=== PATIENT | female | born 1950 | race Caucasian/White ===

== ENCOUNTER 2022-02-09 09:25 | Outpatient (RCR) | payer MEDICARE, BC, SELFPAY | END 2022-04-13 14:14 | disposition home or self-care (01) | LOC: HO.WCC 09:25 | PROVIDERS: Visit Provider Physician Assistant | DX: I83.018 Varicose veins of right lower extremity with ulcer other part of lower leg (principal); L97.812 Non-pressure chronic ulcer of other part of right lower leg with fat layer exposed; M32.9 Systemic lupus erythematosus, unspecified; I73.00 Raynaud's syndrome without gangrene; M35.00 Sjogren syndrome, unspecified; I27.20 Pulmonary hypertension, unspecified; M34.83 Systemic sclerosis with polyneuropathy | CPT/HCPCS: 11042; 99212 ==

== ENCOUNTER 2022-02-23 20:15 | Inpatient (IN) | payer MEDICARE, SELFPAY ==
--- NOTE | ~2022-02-23 | CT_ITS ---
EXAMINATION: CT ANGIOGRAM OF THE CHEST WITH AND WITHOUT CONTRAST (CT PULMONARY ANGIOGRAM FOR PE) CLINICAL INFORMATION: Reason for Exam dyspnea, CTA PER DR ORTIZ COMPARISON: 02/24/2017 TECHNIQUE: Prior to contrast administration, noncontrast localization images were obtained. Subsequently, multidetector volumetric imaging was performed from the thoracic inlet to below the diaphragms following the administration of 65 mL Omnipaque 350 intravenous contrast. No contrast reaction reported Sagittal, coronal, and MIP oblique sagittal reformatted images were obtained on the CT workstation, uploaded to PACS, and reviewed. This CT examination was performed using dose optimization techniques as appropriate, variously including the following: *Automated exposure control *Adjustment of mA and/or kV according to patient size (this includes techniques or standardized protocols for targeted exams where dose is matched to indication/reason for exam; i.e. extremities or head) *Use of iterative reconstruction technique Total exam dose-length product 184 mGy-cm FINDINGS: QUALITY OF STUDY/CONTRAST BOLUS: Satisfactory. PULMONARY ARTERIES: No central or segmental pulmonary emboli. Limited evaluation of the distal vasculature due to respiratory motion artifact. THORACIC AORTA: No aneurysm or dissection. LUNG: Detailed evaluation is limited due to respiratory motion artifact. There is upper lobe predominant emphysema. There is groundglass attenuation within much of the lung parenchyma which could indicate mild edema. A few patchy areas of consolidation are present in the inferior right middle lobe. There is dependent atelectasis in the lower lobes, right greater than left. PLEURA: Small pleural effusions. No pneumothorax. MEDIASTINUM: Thyroid gland is not well seen. No appreciable mediastinal lymphadenopathy. There is cardiomegaly without pericardial effusion. Intraventricular septum appears flattened. Coronary artery calcifications are present. CHEST WALL/AXILLA: No axillary or internal mammary lymphadenopathy. OSSEOUS STRUCTURES: Partially visualized bilateral shoulder arthroplasty hardware. Multiple healed left rib fractures are noted along with healed sternal fracture. Redemonstrated vertebral body cement at T10-T12. Chronic appearing compression deformities at T2, T3, T4, T7, and T9. UPPER ABDOMEN: Scattered bilateral renal calculi are present. Reflux of contrast into the IVC is noted. CT/CT angio chest PE protocol IMPRESSION: 1. No pulmonary embolus identified. 2. Groundglass attenuation within much of the lung parenchyma, which can be seen with edema versus multifocal infection. 3. Small pleural effusions. 4. Cardiomegaly with findings suggesting elevated right heart pressures. 5. Coronary artery calcifications. Correlation with cardiac risk factors is recommended. VTE: negative
--- NOTE | ~2022-02-23 | XR_ITS ---
EXAMINATION: XR CHEST CLINICAL INFORMATION: Shortness of breath COMPARISON: 02/23/2017 TECHNIQUE: Frontal view of the chest was obtained. FINDINGS: Ill-defined opacities throughout the right lung somewhat sparing the right base. More mild change involving the left lung these markings could be chronic The cardiac silhouette is comparable. XR/XR chest 1V IMPRESSION: Exam is most remarkable for coarse interstitial opacity in the right lung most consistent with infiltrate. Differential would include asymmetric pulmonary edema but correlation needs to be made clinically. More mild change on the left. Attention to follow-up
--- NOTE | 2022-02-23 20:19 | ED.SOB ---
HPI - SOB/Dyspnea General Chief Complaint: Dyspnea Stated Complaint: dif breathing Time Seen by Provider: 02/23/22 20:17 History of Present Illness HPI Narrative: Patient is a 71-year-old female with a history of pulmonary hypertension. Presented today with having sudden onset of shortness of breath. Weakness. Patient from home. No change in environment. History of pulmonary hypertension. Currently getting care in [place]. Related Data Allergies Allergy/AdvReac Type Severity Reaction Status Date / Time Sulfa (Sulfonamide Allergy Unknown unknown Verified 02/23/22 21:13 Antibiotics) [SULFA (SULFONAMIDE ANTIBIOTICS)] Review of Systems Review of Systems: Unable to obtain review systems secondary to patient's current respiratory status Yes Unobtainable due to mental condition [facility] Past Medical History Attestation statement: The following information was validated with the patient. Social History Social History Advance Directives: No Advance Directives Information Provided: No Physical Exam Vital Signs: Vital Signs: Last Vital Signs Pulse 71 02/23/22 20:33 Resp 24 H 02/23/22 20:35 BP 135/88 02/23/22 20:33 Pulse Ox 100 02/23/22 20:33 O2 Del Method 02/23/22 20:33 Oxygen Flow Rate 15 02/23/22 20:33 BMI result Body Mass Index 18.9 Sick appearing short of breath Appearance: Alert. In respiratory distress Eyes: Pupils equal, round and reactive to light. ENT: Pharynx normal. Neck: Increased work of breathing diminished breath sounds bilaterally crackles bilaterally. CVS: Normal heart rate and rhythm. Pulses normal. Normal S1 and S2 Respiratory: No respiratory distress. Breath sounds normal. No Wheezing. No rales Abdomen: Soft and nontender. No rigidity. No distention. good BS x4 Skin: Skin warm and dry. Normal skin color. Normal skin turgor. Extremities: No lower extremity edema. Neurovascular intact to all extremities. No Lacerations. No Rash Neuro: Oriented X 3. No motor deficit. No sensory deficit. Moving all extermities. No slurred speech MDM - SOB/Dyspnea MDM Narrative Medical decision making narrative: EKG showed a sinus pattern heart rate is 100 GA QRS QT within normal limits is no acute ST segment elevation noted. 21:00. Patient's chest x-ray showed bilateral infiltrate but more prominent on the right. Question pneumonia versus CHF. With a Bnp of 1471 more likely this is secondary to congestive heart failure. Patient already started on BiPAP. . Lasix nitro given. Will monitor very closely. Culture were obtained. Antibiotic was started. Overall felt patient's symptom more likely secondary to congestive heart failure. Did not feel patient has sepsis. Will monitor very carefully. Aware patient's lactic acid was slightly elevated at 2.3. This is most likely secondary to stress decreased perfusion, respiratory distress 22:00 patient has been on the BiPAP about 2 hours at this point. Symptomatic Rowan feels much improved. An ABG was done. It showed no CO2 retention. PaO2 was in the 180s range at 80% oxygen. Will turn down the O2 to 50%. Patient to be admitted. Again does not think patient has sepsis. Feels patient's symptoms more likely related to congestive heart failure. Differential Diagnosis Differential diagnosis: Likely acute exacerbation of chronic obstructive airways disease, congestive heart failure, pneumonia and asthma with exacerbation Medical Records Attestation: I reviewed the patient's medical records. Lab Data Attestation: I reviewed the patient's lab results. Result diagrams: 02/23/22 20:29 02/23/22 21:30 Labs: Lab Results 02/23/22 02/23/22 02/23/22 Range/Units 20:29 20:29 20:29 WBC 15.5 H (4.8-10.8) X10*3/uL RBC 4.64 (4.20-5.50) X10*6/uL Hgb 13.4 (12.0-16.0) g/dl Hct 43.9 (37.0-47.0) % MCV 94.6 (80.0-98.0) fL MCH 28.9 (27.0-33.0) pg MCHC 30.5 L (31.0-35.0) g/dl RDW 15.9 (11.0-16.0) % Plt Count 297 (160-400) X10*3/uL MPV 10.2 (9.4-12.3) fL Immature Gran % (Auto) 0.5 H (0.0-0.4) % Neut % (Auto) 84.5 H (45-73) % Lymph % (Auto) 8.5 L (20-40) % Deuel % (Auto) 4.7 (2-11) % Eos % (Auto) 1.3 (0-4) % Baso % (Auto) 0.5 (0-2) % Lymph # (Auto) 1.3 (1.2-4.9) X10*3/uL Deuel # (Auto) 0.7 (0.1-1.2) X10*3/uL Eos # (Auto) 0.2 (0.0-0.4) X10*3/uL Baso # (Auto) 0.1 (0.0-0.2) X10*3/uL Abs Immat Gran (auto) 0.08 H (0.00-0.03) X10*3/uL Absolute Neuts (auto) 13.1 H (2.0-8.3) x10*3/uL Absolute Nucleated RBC 0.000 (0.0-0.012) X10*3/uL Nucleated RBC % (auto) 0.0 (0.0-0.2) /100WBC O2 Saturation % ABG pH at Pt Temp (7.35-7.45) ABG pCO2 at Pt Temp (32-45) mmHg ABG pO2 at Pt Temp (83-108) mmHg ABG HCO3 (22-26) mmol/L ABG Base Excess (Actual) mmol/L Sodium (135-145) mmol/L Potassium (3.3-5.1) mmol/L Chloride (96-108) mmol/L Carbon Dioxide (22-29) mmol/L Anion Gap (12-20) BUN (9-16) mg/dL Creatinine (0.5-1.4) mg/dL Estim Creat Clear Calc Estimated GFR Random Glucose (60-115) mg/dL Lactic Acid 2.3 H* (0.5-2.0) mmol/L Calcium (8.4-10.2) mg/dL Total Bilirubin (0.0-1.0) mg/dL Direct Bilirubin (0.0-0.5) mg/dL AST (5-31) U/L ALT (0-31) U/L Alkaline Phosphatase (39-117) U/L Troponin I High Sens 18.7 H (<3.5-17.0) ng/L B-Natriuretic Peptide 1471 H (<100) pg/mL Total Protein (6.5-8.0) g/dL Albumin (3.5-5.0) g/dL 02/23/22 02/23/22 Range/Units 21:30 21:53 WBC (4.8-10.8) X10*3/uL RBC (4.20-5.50) X10*6/uL Hgb (12.0-16.0) g/dl Hct (37.0-47.0) % MCV (80.0-98.0) fL MCH (27.0-33.0) pg MCHC (31.0-35.0) g/dl RDW (11.0-16.0) % Plt Count (160-400) X10*3/uL MPV (9.4-12.3) fL Immature Gran % (Auto) (0.0-0.4) % Neut % (Auto) (45-73) % Lymph % (Auto) (20-40) % Deuel % (Auto) (2-11) % Eos % (Auto) (0-4) % Baso % (Auto) (0-2) % Lymph # (Auto) (1.2-4.9) X10*3/uL Deuel # (Auto) (0.1-1.2) X10*3/uL Eos # (Auto) (0.0-0.4) X10*3/uL Baso # (Auto) (0.0-0.2) X10*3/uL Abs Immat Gran (auto) (0.00-0.03) X10*3/uL Absolute Neuts (auto) (2.0-8.3) x10*3/uL Absolute Nucleated RBC (0.0-0.012) X10*3/uL Nucleated RBC % (auto) (0.0-0.2) /100WBC O2 Saturation 99.0 % ABG pH at Pt Temp 7.34 L (7.35-7.45) ABG pCO2 at Pt Temp 39 (32-45) mmHg ABG pO2 at Pt Temp 191 H (83-108) mmHg ABG HCO3 21 L (22-26) mmol/L ABG Base Excess (Actual) -3.5 mmol/L Sodium 140 (135-145) mmol/L Potassium 5.9 H (3.3-5.1) mmol/L Chloride 104 (96-108) mmol/L Carbon Dioxide 24 (22-29) mmol/L Anion Gap 18 (12-20) BUN 29 H (9-16) mg/dL Creatinine 1.10 (0.5-1.4) mg/dL Estim Creat Clear Calc 32.4 Estimated GFR 49 Random Glucose 118 H (60-115) mg/dL Lactic Acid (0.5-2.0) mmol/L Calcium 9.6 (8.4-10.2) mg/dL Total Bilirubin 0.2 (0.0-1.0) mg/dL Direct Bilirubin < 0.2 (0.0-0.5) mg/dL AST 52 H (5-31) U/L ALT 27 (0-31) U/L Alkaline Phosphatase 115 (39-117) U/L Troponin I High Sens (<3.5-17.0) ng/L B-Natriuretic Peptide (<100) pg/mL Total Protein 7.5 (6.5-8.0) g/dL Albumin 4.4 (3.5-5.0) g/dL Critical Care Time Critical Care Time Critical Care Time: Yes Total Critical Care Time: 40 Attestation: I have personally provided 40 minutes of critical care time exclusive of time spent on separately billable procedures. Time includes review of lab data, radiology results, discussion with consultants, and monitoring for potential decompensation. Interventions were performed as documented above Discharge Plan Discharge Clinical Impression: Congestive heart failure Patient Disposition: Admitted As Inpatient
--- NOTE | 2022-02-23 20:27 | ECG_ITS ---
Test Reason : SOB Blood Pressure : / mmHG Vent. Rate : 075 BPM Atrial Rate : 075 BPM P-R Int : 162 ms QRS Dur : 078 ms QT Int : 402 ms P-R-T Axes : 026 085 036 degrees QTc Int : 448 ms Sinus rhythm with occasional Premature ventricular complexes Right atrial enlargement Abnormal ECG Significant changes have occurred Referred By: Vy Zarate Electronically Signed By:PIPO GRAY MD
[2022-02-23 20:33] VITALS: BP 135/88; BP 211/109; PULSE 71; PULSE 80; RESP 15; O2SAT 100; O2SAT 65; BMI 18.9
[2022-02-23 20:35] VITALS: PULSE 69; RESP 24; O2SAT 96
[2022-02-23 20:39] LABS: MANUAL DIFF FLAG NO
[2022-02-23 20:46] LABS: Basophils Absolute Auto 0.1 X10*3/uL (0.0-0.2); Basophils Percent Auto 0.5 % (0-2); Eosinophils Absolute Auto 0.2 X10*3/uL (0.0-0.4); Eosinophils Percent Auto 1.3 % (0-4); Hematocrit 43.9 % (37.0-47.0); Hemoglobin 13.4 g/dl (12.0-16.0); Imm Gran Abs Auto 0.08 X10*3/uL (0.00-0.03); Imm Gran Pct Auto 0.5 % (0.0-0.4); Lymphocytes Absolute Auto 1.3 X10*3/uL (1.2-4.9); Lymphocytes Percent Auto 8.5 % (20-40); Mean Corpuscular HGB Conc 30.5 g/dl (31.0-35.0); Mean Corpuscular Hemoglobin 28.9 pg (27.0-33.0); Mean Corpuscular Volume 94.6 fL (80.0-98.0); Mean Platelet Volume 10.2 fL (9.4-12.3); Monocytes Absolute Auto 0.7 X10*3/uL (0.1-1.2); Monocytes Percent Auto 4.7 % (2-11); Neutrophils Absolute Auto 13.1 x10*3/uL (2.0-8.3); Neutrophils Percent Auto 84.5 % (45-73); Platelet Count 297 X10*3/uL (160-400); Red Blood Count 4.64 X10*6/uL (4.20-5.50); Red Cell Distribution Width 15.9 % (11.0-16.0); White Blood Count 15.5 X10*3/uL (4.8-10.8)
[2022-02-23] MEDS: Nitroglycerin 2 % Oint 1 GM Packet 0.5 INCH TRANSDERMA (20:46)
[2022-02-23] MEDS: cefTRIAXone sodium 1 GM in 0.9 % Sodium Chloride 50 ML IV (20:47)
[2022-02-23] MEDS: Furosemide 40 MG/4 ML VIAL IVPUSH (20:47)
[2022-02-23] MEDS: methylPREDNISolone Sod Succ 125 MG/2 ML VIAL IVPUSH (20:47)
[2022-02-23 21:05] LABS: B Type Natriuretic Peptide 1471 pg/mL (<100); Troponin-I High Sensitivity 18.7 ng/L (<3.5-17.0)
[2022-02-23 21:11] LABS: Lactic Acid 2.3 mmol/L (0.5-2.0)
[2022-02-23 21:59] LABS: ABG Base Excess -3.5 mmol/L; ABG HCO3 21 mmol/L (22-26); ABG pCO2 39 mmHg (32-45); ABG pH 7.34 (7.35-7.45); ABG pO2 191 mmHg (83-108)
[2022-02-23] MEDS: Azithromycin 500 MG TABLET PO (22:03)
[2022-02-23 22:06] LABS: Alanine Aminotransferase 27 U/L (0-31); Albumin Level 4.4 g/dL (3.5-5.0); Alkaline Phosphatase 115 U/L (39-117); Anion Gap 18 (12-20); Aspartate Amino Transferase 52 U/L (5-31); Bilirubin Direct < 0.2 mg/dL (0.0-0.5); Bilirubin Total 0.2 mg/dL (0.0-1.0); Blood Urea Nitrogen 29 mg/dL (9-16); Calcium 9.6 mg/dL (8.4-10.2); Carbon Dioxide 24 mmol/L (22-29); Chloride 104 mmol/L (96-108); Creatinine Clr Calc Pharmacy 32.4; Estimated Glomerular Filt Rate 49; Glucose Random 118 mg/dL (60-115); Potassium 5.9 mmol/L (3.3-5.1); Sodium 140 mmol/L (135-145); Total Protein 7.5 g/dL (6.5-8.0)
--- NOTE | 2022-02-23 22:07 | PC.NURSE ---
Pt. resting in bed with BIPAP. Respiratory here to check on pt. and lower O2 levels. Pt. medicated with PO med per JUL w/o difficulties.
[2022-02-23 22:12] VITALS: O2SAT 95
[2022-02-23 22:15] VITALS: PULSE 72; RESP 18; O2SAT 95
[2022-02-23 22:36] LABS: Reflex Lactate? Lactic Acid Added
--- NOTE | 2022-02-23 22:45 | PC.NURSE ---
Patient removed from BIPAP, for trial prior to traveling to [place]. Patient sitting upright, awake alert, talking and laughing with family. Unable to obtain sat via multiple locations, MD aware and based on patient presentation and ABG results there are no new orders and at this time we do not need to continue to search for readable sat location. Per patient she has ac, she states it is typical for a sat to be unobtainable at all her prior MD appointments or visits.
[2022-02-23 23:03] LABS: ABG Refer to POC result
[2022-02-23 23:51] LABS: Glucose, Whole Blood 162 mg/dL (60-115)
[2022-02-24] VITALS: BP 124/75; PULSE 77; RESP 14
[2022-02-24] MEDS: iohexoL 350 MG/ML 100 ML INFUS..BTL 65 ML IV (00:08)
[2022-02-24 00:37] LABS: ~Lactic Acid-LAB USE ONLY 1.6 mmol/L (0.5-2.0)
--- NOTE | 2022-02-24 00:54 | P.HPHOSP_ITS ---
History of Present Illness Date of Service: 02/24/22 Chief Complaint: Shortness of breath This is a 71-year-old female with a pertinent history of Raynaud's disease, Sjogren's syndrome, mood disorder, pulmonary hypertension, insomnia who presents to the emergency department for evaluation of shortness of breath. History obtained from the patient, son and at bedside. As per the son, patient was at work when she experienced sudden onset shortness of breath. She texted to her son that she might be having a panic attack. Patient had a similar episode about a week ago when patient was dyspneic, tachypneic. It self- resolved at home with calming techniques. Today, it seemed worse and the son decided to bring the patient to the ER for further evaluation. Under review of systems, patient has been having upper respiratory symptoms for the last few days. No documented fever but has chills and cough. Patient states that she felt like there was phelgm every time she coughed but she was not able to produce it. Patient denies leg swelling, history of heart failure, orthopnea, PND. She was seen by director of sales about 3 months ago when complete workup including echo was done and she was diagnosed with pulmonary hypertension. Patient denies chest discomfort, palpitations, abdominal discomfort, changes in urinary or bowel habits. In the emergency department, patient was found to be hypoxemic. She was tachypneic, dyspneic with elevated lactic acid and white count. Lung imaging revealed right-sided infiltrate Review of Systems Review of Systems: All 13 review of systems are negative except as noted in [facility] Medical History Insomnia Mood disorder Pulmonary hypertension Raynaud disease Sjogren's syndrome Social History Alcohol intake: current Alcohol intake frequency: a few times a week Alcohol type: wine Patient Tobacco Use Status: Never used Tobacco Advance Directives: No Advance Directives Information Provided: No Meds Allergies Allergy/AdvReac Type Severity Reaction Status Date / Time Sulfa (Sulfonamide Allergy Intermediate unknown Verified 02/23/22 23:36 Antibiotics) [SULFA (SULFONAMIDE ANTIBIOTICS)] phenobarbital Allergy Agitated Verified 02/23/22 23:36 Active Medications: Current Medications Acetaminophen (Acetaminophen 325 Mg Tablet) 650 mg PO Q6H PRN PRN Reason: Pain, Mild (Pain Scale 1-3) Azithromycin (Azithromycin 500 Mg Tablet) 500 mg PO DAILY [facility] Enoxaparin Sodium (Enoxaparin Sodium 40 Mg/0.4 Ml Syringe) 40 mg SUBCUT Q24H S CH Sodium Chloride (Ns) 1,278 mls @ 1,278 mls/hr 30 ml/kg infuse over 1 hr (1278 ml) IV .Q1H STA Stop: 02/24/22 01:34 Ceftriaxone Sodium 2 gm/ (Sodium Chloride) 50 mls @ 100 mls/hr IV DAILY [facility] Melatonin (Melatonin 3 Mg Tablet) 6 mg PO BEDTIME PRN PRN Reason: Insomnia Ondansetron HCl (Ondansetron Hcl 4 Mg/2 Ml Vial) 4 mg IVPUSH Q8H PRN PRN Reason: Nausea and Vomiting Pharmacy Consult (Consult Rx Perform Med Rec) 1 each MISCELLANE ONCE STA Stop: 02/23/22 22:26 Sodium Chloride (0.9 % Sodium Chloride Flush 3 Ml Syringe) 3 ml IVFLUSH QSHIFT [facility] Home Medications Medication Instructions Recorded Confirmed Last Taken Type amlodipine 2.5 mg tablet 1 tab PO DAILY 02/23/22 02/23/22 Unknown History cevimeline 30 mg capsule 1 cap PO TID 02/23/22 02/23/22 Unknown History dextroamphetamine-amphetamine 20 1 tab PO TID 02/23/22 02/23/22 Unknown History mg tablet duloxetine 20 mg capsule,delayed 1 cap PO BID 02/23/22 02/23/22 Unknown History release furosemide 20 mg tablet 0.5 tab PO DAILY 02/23/22 02/23/22 Unknown History gabapentin 600 mg tablet 1 tab PO TID 02/23/22 02/23/22 Unknown History propranolol 40 mg tablet 1 tab PO BID 02/23/22 02/23/22 Unknown History sildenafil (pulm.hypertension) 20 20 mg PO TID 02/23/22 02/23/22 Unknown History mg tablet tramadol 50 mg tablet 1 - 2 tab PO Q6H PRN Inflammation 02/23/22 02/23/22 Unknown History zolpidem 10 mg tablet 1 tab PO BEDTIME 02/23/22 02/23/22 Unknown History Physical Exam Vital Signs and Narrative: Vital Signs: Last Vital Signs Pulse 77 02/24/22 00:00 Resp 14 02/24/22 00:00 BP 124/75 02/24/22 00:00 Pulse Ox 100 02/23/22 20:33 O2 Del Method 02/24/22 00:00 O2 Flow Rate 4 02/24/22 00:00 Oxygen Flow Rate 15 02/23/22 20:33 BMI result Body Mass Index 18.9 Middle-aged female lying in bed in mild distress on 2-3 L supplemental oxygen Neck supple, no JVD Regular rate and rhythm, S1-S2 heard Right-sided crackles without wheezing Abdomen soft nontender, no guarding, no rigidity Patient is awake, alert and oriented to self, place, time and person ; no focal motor deficit Psych: Normal mood No pedal edema Results Labs CBC and Chem 7: 02/23/22 20:29 02/23/22 21:30 Labs: Laboratory Results - last 24 hr 02/23/22 02/23/22 02/23/22 20:18 20:29 20:29 MCV 94.6 MCH 28.9 MCHC 30.5 L RDW 15.9 Plt Count 297 MPV 10.2 Immature Gran % (Auto) 0.5 H Neut % (Auto) 84.5 H Lymph % (Auto) 8.5 L [place] % (Auto) 4.7 Eos % (Auto) 1.3 Baso % (Auto) 0.5 Lymph # (Auto) 1.3 [place] # (Auto) 0.7 Eos # (Auto) 0.2 Baso # (Auto) 0.1 Abs Immat Gran (auto) 0.08 H Absolute Neuts (auto) 13.1 H Absolute Nucleated RBC 0.000 Nucleated RBC % (auto) 0.0 O2 Saturation ABG pH at Pt Temp ABG pCO2 at Pt Temp ABG pO2 at Pt Temp ABG HCO3 ABG Base Excess (Actual) Anion Gap Estim Creat Clear Calc Estimated GFR POC Glucose 162 H Random Glucose Lactic Acid Lactic Acid F/U @ 2Hr Calcium Total Bilirubin Direct Bilirubin AST ALT Alkaline Phosphatase Troponin I High Sens 18.7 H B-Natriuretic Peptide 1471 H Total Protein Albumin 02/23/22 02/23/22 02/23/22 20:29 21:30 21:53 MCV MCH MCHC RDW Plt Count MPV Immature Gran % (Auto) Neut % (Auto) Lymph % (Auto) [place] % (Auto) Eos % (Auto) Baso % (Auto) Lymph # (Auto) [place] # (Auto) Eos # (Auto) Baso # (Auto) Abs Immat Gran (auto) Absolute Neuts (auto) Absolute Nucleated RBC Nucleated RBC % (auto) O2 Saturation 99.0 ABG pH at Pt Temp 7.34 L ABG pCO2 at Pt Temp 39 ABG pO2 at Pt Temp 191 H ABG HCO3 21 L ABG Base Excess (Actual) -3.5 Anion Gap 18 Estim Creat Clear Calc 32.4 Estimated GFR 49 POC Glucose Random Glucose 118 H Lactic Acid 2.3 H* Lactic Acid F/U @ 2Hr Calcium 9.6 Total Bilirubin 0.2 Direct Bilirubin < 0.2 AST 52 H ALT 27 Alkaline Phosphatase 115 Troponin I High Sens B-Natriuretic Peptide Total Protein 7.5 Albumin 4.4 02/24/22 00:16 MCV MCH MCHC RDW Plt Count MPV Immature Gran % (Auto) Neut % (Auto) Lymph % (Auto) [place] % (Auto) Eos % (Auto) Baso % (Auto) Lymph # (Auto) [place] # (Auto) Eos # (Auto) Baso # (Auto) Abs Immat Gran (auto) Absolute Neuts (auto) Absolute Nucleated RBC Nucleated RBC % (auto) O2 Saturation ABG pH at Pt Temp ABG pCO2 at Pt Temp ABG pO2 at Pt Temp ABG HCO3 ABG Base Excess (Actual) Anion Gap Estim Creat Clear Calc Estimated GFR POC Glucose Random Glucose Lactic Acid Lactic Acid F/U @ 2Hr 1.6 Calcium Total Bilirubin Direct Bilirubin AST ALT Alkaline Phosphatase Troponin I High Sens B-Natriuretic Peptide Total Protein Albumin Imaging Radiologist's Impressions: Impressions Chest X-Ray 02/23/22 20:26 IMPRESSION: Exam is most remarkable for coarse interstitial opacity in the right lung most consistent with infiltrate. Differential would include asymmetric pulmonary edema but correlation needs to be made clinically. More mild change on the left. Attention to follow-up Chest CTA 02/24/22 00:10 IMPRESSION: 1. No pulmonary embolus identified. 2. Groundglass attenuation within much of the lung parenchyma, which can be seen with edema versus multifocal infection. 3. Small pleural effusions. 4. Cardiomegaly with findings suggesting elevated right heart pressures. 5. Coronary artery calcifications. Correlation with cardiac risk factors is recommended. VTE: negative Assessment and Plan (1) Hypoxia: Status: Acute (2) Pneumonia: Status: Acute (3) Pulmonary hypertension: Status: Acute (4) Raynaud disease: Status: Acute (5) Sjogren's syndrome: Status: Acute (6) Mood disorder: Status: Acute (7) Insomnia: Status: Acute Plan This is a 71-year-old female with a pertinent history of Raynaud's disease, Sjogren's syndrome, mood disorder, pulmonary hypertension, insomnia who presents to the emergency department for evaluation of shortness of breath. #. Acute hypoxemic respiratory failure due to #. Sepsis secondary to pneumonia -will admit patient and initiate empiric antibiotics for community-acquired pneumonia. Resuscitated with IV crystalloid in the ER. Lactate and Blood cultures obtained. Monitor oxygen saturation and venous tolerated. Maintain oxygen saturation greater than 92%. Her dyspnea/tachypnea exacerbated by an ?episode of panic attack today. Mood was stable and she was calm at the time of my evaluation #. Elevated BNP -Her BNP is elevated at baseline being elderly female, it was 4000 in October. Patient saw a director of sales at [facility] 3 months ago and got a complete workup including echo. Patient was told she does not have heart failure inspite of BNP being 4000 then. No signs or symptoms of congestive heart failure today at the time of admission. #. Pulmonary hypertension -continue sildenafil. She takes minimal dose of Lasix for pulmonary hypertension, hold currently. Restart as appropriate. #. Essential hypertension -continue propranolol and amlodipine #. Raynaud and Sjogren's -continue Cevimeline #. Mood disorder with history of panic attacks #. Insomnia -continue home medications -currently stable DVT prophylaxis: Lovenox 40 mg daily Full code Diet: Cardiac diet Patient will require two night minimum hospital stay for need for IV antibiotic for sepsis due to pneumonia and close monitoring of oxygen saturation. Quality Stroke Does the patient have a stroke diagnosis?: No VTE Prior VTE?: No VTE Risk Level:: Medical - moderate - high VTE Device Contraindication: Treatment Not Indicated VTE Drug Contraindication: N/A - Med Ordered
[2022-02-24 00:58] LABS: COVID-19 Test Negative (Negative)
[2022-02-24] MEDS: Enoxaparin Sodium 40 MG/0.4 ML SYRINGE SUBCUT (01:25)
[2022-02-24] MEDS: Zolpidem Tartrate 5 MG TABLET 10 MG PO ×2 (01:26→21:27)
--- NOTE | 2022-02-24 03:17 | PC.NURSE ---
At 2am pt. sleeping. Guaifenesin not given at that time d/t sleeping. Will medicate when pt. awakens.
[2022-02-24 04:53] LABS: Basophils Percent Auto 0.1 % (0-2); Hematocrit 38.4 % (37.0-47.0); Hemoglobin 12.2 g/dl (12.0-16.0); Imm Gran Abs Auto 0.02 X10*3/uL (0.00-0.03); Imm Gran Pct Auto 0.2 % (0.0-0.4); Lymphocytes Absolute Auto 0.5 X10*3/uL (1.2-4.9); MANUAL DIFF FLAG SCAN; Mean Corpuscular HGB Conc 31.8 g/dl (31.0-35.0); Mean Corpuscular Volume 91.2 fL (80.0-98.0); Mean Platelet Volume 10.5 fL (9.4-12.3); Monocytes Absolute Auto 0.1 X10*3/uL (0.1-1.2); Monocytes Percent Auto 0.8 % (2-11); Neutrophils Absolute Auto 7.7 x10*3/uL (2.0-8.3); Neutrophils Percent Auto 92.9 % (45-73); Platelet Count 236 X10*3/uL (160-400); Red Blood Count 4.21 X10*6/uL (4.20-5.50); Red Cell Distribution Width 15.5 % (11.0-16.0); SCAN SMEAR FLAG 1; White Blood Count 8.3 X10*3/uL (4.8-10.8)
[2022-02-24 05:10] LABS: Anion Gap 23 (12-20); Blood Urea Nitrogen 25 mg/dL (9-16); Calcium 8.6 mg/dL (8.4-10.2); Carbon Dioxide 21 mmol/L (22-29); Chloride 100 mmol/L (96-108); Creatinine Clr Calc Pharmacy 40.5; Estimated Glomerular Filt Rate > 60; Glucose Random 106 mg/dL (60-115); Potassium 5.5 mmol/L (3.3-5.1); Sodium 138 mmol/L (135-145)
[2022-02-24 05:26] LABS: SLIDE REVIEW VERIFIED
[2022-02-24 06:13] VITALS: BP 123/77; PULSE 82; RESP 20
[2022-02-24 07:36] VITALS: BP 122/68; PULSE 82; RESP 18; TEMP 36.8
--- NOTE | 2022-02-24 07:37 | PC.NURSE ---
Pt resting comfortably on stretcher, reports feeling ok, no respiratory distress, continues on 4L oxygen via [place]. Pending hospital admission, pt aware of plan of care. Diet ordered and kitchen called for breakfast.
--- NOTE | 2022-02-24 07:55 | PHA.MEDREC ---
Pharmacy Consult ? Medication Reconciliation Pharmacy has REVIEWED the medication reconciliation done by Lizeth.
[2022-02-24] MEDS: Sildenafil Citrate 20 MG TABLET PO ×3 (09:05→21:27)
[2022-02-24] MEDS: amLODIPine Besylate 2.5 MG TABLET PO (09:06)
[2022-02-24] MEDS: Gabapentin 600 MG TABLET PO ×3 (09:06→21:27)
[2022-02-24] MEDS: Amphetamine Mixed Salts 20 MG TABLET PO ×3 (09:06→21:27)
[2022-02-24] MEDS: Azithromycin 500 MG TABLET PO (09:06)
[2022-02-24] MEDS: DULoxetine HCl 20 MG CAPSULE.DR PO ×2 (09:06→21:27)
[2022-02-24] MEDS: guaiFENesin 100 MG/5 ML LIQUID PO ×3 (09:07→19:48)
[2022-02-24] MEDS: 0.9 % Sodium Chloride Flush 3 ML SYRINGE IVFLUSH ×2 (09:09→21:45)
[2022-02-24] MEDS: traMADoL HCL 50 MG TABLET PO ×3 (09:52→22:03)
[2022-02-24 10:31] VITALS: BP 138/76; PULSE 98; RESP 17; TEMP 36.8; O2SAT 97
[2022-02-24] MEDS: Propranolol HCL 40 MG TABLET PO ×2 (11:00→21:26)
[2022-02-24] MEDS: Acetaminophen 325 MG TABLET 650 MG PO ×2 (11:48→16:58)
--- NOTE | 2022-02-24 14:23 | PM.EVENT ---
Event Note Date of Service: 02/24/22 Event Note: Patient admitted earlier this morning for shortness of breath and diagnosed to have sepsis due to pneumonia with leukocytosis, lactic acidosis shortness of breath and chest x-ray consistent with right-sided infiltrate Assessment and plan Sepsis due to right-sided pneumonia Recently diagnosed pulmonary hypertension Hyperkalemia not on [place] or arbs potassium trending down to 5.5 repeat BMP at a.m. Lactic acidosis resolved likely due to sepsis CTA chest showed no PE showed small pleural effusion, ground-glass attenuation within much of the lung parenchyma that can be seen with edema versus multifocal infection, cardiomegaly with findings suggestive of elevated right heart pressures, Continue IV antibiotics ceftriaxone and azithromycin day 1 continue home medication for pulmonary hypertension will consult Cardiology to address need for diuretics, follow blood cultures BNP trending down since was 4000 at [facility] in October currently around 1500
--- NOTE | 2022-02-24 15:36 | MHC.CM.PN ---
Met with patient and patient's son, Jaciel in regards to discharge planning. Patient lives with her , ambulates independently and is active with [facility]. PCP verified. Copy of HCP obtained from [facility]. Patient has not received any Covid vaccines. IMM explained and signed. Anticipate patient will return home with resumption of services. Family to transport at discharge. Continue to monitor for d/c needs.
[2022-02-24] MEDS: cefTRIAXone sodium 2 GM in 0.9 % Sodium Chloride 50 ML IV (19:40)
[2022-02-24 20:01] VITALS: BP 126/72; PULSE 81; RESP 16; O2SAT 95
[2022-02-24 20:20] VITALS: BP 118/56; PULSE 80; RESP 18; TEMP 36.3
[2022-02-25] VITALS: BP 103/56; PULSE 80; RESP 17; TEMP 36.4; O2SAT 93
[2022-02-25] MEDS: cefTRIAXone sodium 2 GM in 0.9 % Sodium Chloride 50 ML IV (00:40)
[2022-02-25] MEDS: Enoxaparin Sodium 40 MG/0.4 ML SYRINGE SUBCUT (00:42)
[2022-02-25] MEDS: guaiFENesin 100 MG/5 ML LIQUID PO ×2 (02:00→06:33)
[2022-02-25 05:59] LABS: Anion Gap 19 (12-20); Blood Urea Nitrogen 22 mg/dL (9-16); Calcium 8.8 mg/dL (8.4-10.2); Carbon Dioxide 21 mmol/L (22-29); Chloride 103 mmol/L (96-108); Creatinine Clr Calc Pharmacy 46.3; Estimated Glomerular Filt Rate > 60; Glucose Random 100 mg/dL (60-115); Potassium 4.2 mmol/L (3.3-5.1); Sodium 139 mmol/L (135-145)
[2022-02-25 06:56] VITALS: BP 127/65; PULSE 76; RESP 19; TEMP 36.1; O2SAT 92
[2022-02-25] MEDS: Acetaminophen 325 MG TABLET 650 MG PO (08:33)
[2022-02-25] MEDS: amLODIPine Besylate 2.5 MG TABLET PO (08:34)
[2022-02-25] MEDS: Gabapentin 600 MG TABLET PO (08:34)
[2022-02-25] MEDS: DULoxetine HCl 20 MG CAPSULE.DR PO (08:34)
[2022-02-25] MEDS: Amphetamine Mixed Salts 20 MG TABLET PO (08:34)
[2022-02-25] MEDS: Propranolol HCL 40 MG TABLET PO (08:34)
[2022-02-25] MEDS: Azithromycin 500 MG TABLET PO (08:34)
[2022-02-25] MEDS: Sildenafil Citrate 20 MG TABLET PO (08:34)
[2022-02-25] MEDS: Furosemide 20 MG TABLET 10 MG PO (09:58)
[2022-02-25 11:19] VITALS: BMI 18.9
--- NOTE | 2022-02-25 11:38 | MHC.CM.PN ---
PATIENT IS DC HOME TODAY WITH [facility]UMPTION OF [facility]
--- NOTE | 2022-02-25 12:04 | P.DS_ITS ---
DS: Providers Provider Date of Service: 02/25/22 Date of admission: 02/24/22 00:48 Primary care physician: Unknown Physician DS: Diagnosis Discharge Diagnosis (1) Hypoxia: Status: Acute (2) Pneumonia: Status: Acute (3) Pulmonary hypertension: Status: Acute (4) Raynaud disease: Status: Acute (5) Sjogren's syndrome: Status: Acute (6) Mood disorder: Status: Acute (7) Insomnia: Status: Acute DS: Summary Hospital Course Hospital Course: Date of Service: 02/24/22 Chief Complaint: Shortness of breath This is a 71-year-old female with a pertinent history of Raynaud's disease, Sjogren's syndrome, mood disorder, pulmonary hypertension, insomnia who presents to the emergency department for evaluation of shortness of breath.? History obtained from the patient, son and at bedside.? As per the son, patient was at work when she experienced sudden onset shortness of breath.? She texted to her son that she might be having a panic attack.? Patient had a similar episode about a week ago when patient was dyspneic, tachypneic.? It self- resolved at home with calming techniques.? Today, it seemed worse and the son decided to bring the patient to the ER for further evaluation.? Under review of systems, patient has been having upper respiratory symptoms for the last few days.? No documented fever but has chills and cough.? Patient states that she felt like there was phelgm every time she coughed but she was not able to produce it.? Patient denies leg swelling, history of heart failure, orthopnea, PND.? She was seen by machine [facility]and reporter about 3 months ago when complete workup including echo was done and she was diagnosed with pulmonary hypertension.? Patient denies chest discomfort, palpitations, abdominal discomfort, changes in urinary or bowel habits. In the emergency department, patient was found to be hypoxemic.? She was tachypneic, dyspneic with elevated lactic acid and white count.? Lung imaging revealed right-sided infiltrate. Hospital course 71-year-old female with a pertinent history of Raynaud's disease, Sjogren's syndrome, mood disorder, pulmonary hypertension, insomnia presented to the emergency department for evaluation of shortness of breath, and diagnosed to have acute hypoxic respiratory failure related to pneumonia and sepsis. #.? Acute hypoxemic respiratory failure due to Sepsis secondary to pneumonia, patient admitted to medical floor and was placed on IV ceftriaxone, IV azithromycin, oxygen and cough medication patient responded well to above treatment on WBC normalized all symptoms of sepsis resolved blood cultures x2 negative times 24 hours since patient is feeling significantly better with no recurrent fever chills no tachypnea no tachycardia oxygenation is stable on room air therefore she is being discharged home on Ceftin and azithromycin for total 5 day treatment for community-acquired pneumonia , CTA chest showed no pulmonary embolism showed ground-glass attenuation within much of the lung parenchyma question related to multifocal infection versus edema, clinically patient did not appear fluid overloaded therefore has been continued on low-dose Lasix. #. Patient recently diagnosed to have pulmonary hypertension and is being followed by machine shorthand reporter at [facility] she has been recommended to continue all home medications as before she was noted to have elevated BNP around 1500, but significantly better since BNP was 4000 in October of 2021 #.? Essential hypertension noted to have stable blood pressures recommend to continue propranolol and amlodipine #.? Raynaud and Sjogren's -continue Cevimeline #.? Mood disorder with history of panic attacks continue home medications Time Spent with Patient Time attestation: Total time spent providing and/or coordinating discharge services: Discharge coordination time: Greater than 30 minutes Quality: Safe Use of Opioids Does Pt have an Active Cancer Diagnosis on the Problem List?: No Quality: Stroke Does the patient have a stroke diagnosis?: No Physical Exam Vital Signs: Vital Signs: Last Vital Signs Temp 97 F 02/25/22 06:56 Pulse 76 02/25/22 06:56 Resp 19 02/25/22 06:56 BP 127/65 02/25/22 06:56 Pulse Ox 92 02/25/22 06:56 O2 Del Method 02/25/22 06:56 O2 Flow Rate 2 02/24/22 20:01 Oxygen Flow Rate 15 02/23/22 20:33 BMI result Body Mass Index 18.9 Const: Other: General patient aw sharon alert x3 no ac [place] distress Neck supple, no JVD Reg ular rate and rhyt hm, S1-S2 heard Fe w dry basilar crac kles right base, o therwise clear to auscultation no us e of accessory mus cles Abdomen soft non tender, no gua rding, no rigidity Neuro nonfocal Ps ych: Normal mood N o pedal edema DS: Data Data Completed and Pending Labs on day of discharge: Laboratory Results - last 24 hr 02/25/22 05:19 Sodium 139 Potassium 4.2 D Chloride 103 Carbon Dioxide 21 L Anion Gap 19 BUN 22 H Creatinine 0.77 Estim Creat Clear Calc 46.3 Estimated GFR > 60 Random Glucose 100 Calcium 8.8 Preliminary micro results at discharge 02/23/22 21:30 Blood Culture - Preliminary Blood - Venous No growth after 24 hours. 02/23/22 20:29 Blood Culture - Preliminary Blood - Venous No growth after 24 hours. Discharge Plan Discharge Anticipated Discharge Date/Time: 02/25/22 11:29 Patient Disposition: Home, Self-Care Discharge Diagnosis: Acute hypoxic respiratory failure due to pneumonia Sepsis due to pneumonia Pulmonary hypertension Referrals: [facility] [Outside] - 1 Week Physician,Unknown J [Primary Care Provider] - 1 Week Discharge Medications: New azithromycin 500 mg Tablet 500 mg PO DAILY Qty: 3 0RF cefuroxime axetil 500 mg tablet 500 mg PO Q12H Qty: 6 0RF Continued gabapentin 600 mg tablet 1 tab PO TID tramadol 50 mg tablet 1 - 2 tab PO Q6H PRN (Reason: Pain, Moderate) propranolol 40 mg tablet 1 tab PO BID cevimeline 30 mg capsule 1 cap PO TID dextroamphetamine-amphetamine 20 mg tablet 1 tab PO TID furosemide 20 mg tablet 0.5 tab PO DAILY zolpidem 10 mg tablet 1 tab PO BEDTIME duloxetine 20 mg capsule,delayed release(DR/EC) 1 cap PO BID sildenafil (pulm.hypertension) 20 mg tablet 20 mg PO TID amlodipine 2.5 mg tablet 1 tab PO DAILY Discharge Orders: Discharge Order (Routine); Ordered 02/25/22 Ordered By: Lyndon Herr Diet: Low salt diet Activity on Discharge: As tolerated Stand Alone Forms: Patient Portal Discharge page Care Plan Goals: Hypoxia resolved in regard to pneumonia take 3 more days of azithromycin and Ceftin take cough medication as needed resume all home medications as before Health Concerns: as above Plan of Treatment: Outpatient follow-up with primary care physician and Cardiology as before Assessment: as above
== END 2022-02-25 13:19 | disposition home or self-care (01) | DRG 871 ==
LOC: HO.ED 22:15 → HO.EDOVER 02-24 00:57 → HO.S3 02-24 17:31
PROVIDERS: Admitting Provider Student in an Organized Health Care Education/Training Program; Emergency Provider Emergency Medicine Emergency Medical Services; PCP Internal Medicine; Visit Provider Hospitalist
DX: A41.9 Sepsis, unspecified organism (principal); J18.9 Pneumonia, unspecified organism; J96.01 Acute respiratory failure with hypoxia; E87.5 Hyperkalemia; G47.00 Insomnia, unspecified; I27.20 Pulmonary hypertension, unspecified; M35.00 Sjogren syndrome, unspecified; I73.00 Raynaud's syndrome without gangrene; Z20.822 Contact with and (suspected) exposure to COVID-19; Z88.2 Allergy status to sulfonamides; Z88.8 Allergy status to other drugs, medicaments and biological substances; Z79.899 Other long term (current) drug therapy
CPT/HCPCS: 36415; 71045; 71275; 80048; 80076; 82803; 82947; 83605; 83880; 84484; 85025; 87040; 87635; 93005; 94660; 99285; J0696; J1650; J1940; J2930; Q9967